=== PATIENT | male | born 1975 ===

== ENCOUNTER 2017-05-21 10:42 | Day surgery (SDC) | payer OTHER ==
[2017-05-21] MEDS ORDERED: Lidocaine 4% (Laryng-O-Jet) Kit MM ONE (11:48)
[2017-05-21 12:53] VITALS: BMI 25.4
[2017-05-21] MEDS ORDERED: Midazolam 2 MG/2 ML VIAL ONE (13:03)
[2017-05-21] MEDS ORDERED: Propofol 10 mg/ml Inj (20 ML) ONE ×2 (13:03→13:12)
--- NOTE | 2017-05-21 17:03 | CARD ---
APPROVED REPORT EXAM: Two-dimensional and M-mode echocardiogram with Doppler and color Doppler. Other Information Quality : GoodRhythm : NSR INDICATION CVA/TIA Mitral Valve E/A ratio0.0 TDI E/Lateral E'0.0E/Medial E'0.0 LEFT VENTRICLE The left ventricle is normal size. There is normal left ventricular wall thickness. The left ventricular function is normal. The left ventricular ejection fraction is within the normal range. There is normal LV segmental wall motion. RIGHT VENTRICLE The right ventricle is normal size. There is normal right ventricular wall thickness. The right ventricular systolic function is normal. ATRIA The left atrium size is normal. The right atrium size is normal. The interatrial septum is intact with no evidence for an atrial septal defect. AORTIC VALVE The aortic valve is normal in structure. No aortic regurgitation is present. There is no aortic valvular stenosis. MITRAL VALVE The mitral valve is normal in structure. There is no evidence of mitral valve prolapse. There is no mitral valve stenosis. There is no mitral valve regurgitation noted. TRICUSPID VALVE The tricuspid valve is normal in structure. There is no tricuspid valve regurgitation noted. GREAT VESSELS The aortic root is normal in size. <Conclusion> No evidence of a PFO or septal defects No intre-cardiac thrombus
== END 2017-05-21 16:00 | disposition short-term general hospital (02) ==
LOC: C.CATHLAB 10:42
PROVIDERS: ATTEND Specialist
DX: Z86.73 Personal history of transient ischemic attack (TIA), and cerebral infarction without residual deficits (principal); I10 Essential (primary) hypertension
CPT/HCPCS: 93312; J2001; J2250; J2704

== ENCOUNTER 2017-12-09 20:45 | Emergency (ER) | payer MEDICAID, OTHER ==
[2017-12-09 20:45] VITALS: BMI 25.4
[2017-12-09 20:59] VITALS: BP 112/73; PULSE 74; TEMP 97.4; O2SAT 98
--- NOTE | 2017-12-09 21:20 | C.PDOC ---
History Of Present Illness 42 year old male presents to the ER with a complaint of left eye pain and foreign body sensation for the past 2 days. 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 Denies use of glasses/contact lenses, purulent drainage, visual changes, or other injury. Time Seen by Provider: 12/09/17 21:04 Chief Complaint (Nursing): Eye Problem History Per: Patient History/Exam Limitations: no limitations Onset/Duration Of Symptoms: Days (2) Current Symptoms Are (Timing): Still Present Wears Contact Lens?: No Associated Symptoms: Pain, FB Sensation, Other (Tearing) Recent travel outside of the [place]: No Past Medical History Reviewed: Historical Data, Nursing Documentation, Vital Signs Vital Signs: Last Vital Signs Temp 97.4 F L 12/09/17 20:54 Pulse 74 12/09/17 20:54 Resp 16 12/09/17 20:54 BP 112/73 12/09/17 20:54 Pulse Ox 98 12/09/17 20:54 - Medical History PMH: Anxiety, HTN Surgical History: Appendectomy - [facility] Procedures ULTRASONOGRAPHY OF RIGHT AND LEFT HEART, TRANSESOPHAGEAL (05/19/17) Family History: States: Unknown Family Hx - Social History Hx Alcohol Use: Yes Hx Substance Use: No Review Of Systems Eyes: Positive for: Pain, Other (Foreign body sensation) Physical Exam - Physical Exam Appears: Non-toxic, No Acute Distress Skin: Normal Color, Warm, Dry Head: Atraumatic, Normacephalic Eye(s): bilateral: PERRL, EOMI, right: Normal Inspection, left: Other ((+) FB, (+) fluorescein uptake ) Nose: Normal Oral Mucosa: Moist Neck: Normal ROM, Supple Chest: Symmetrical Respiratory: No Accessory Muscle Use Extremity: Normal ROM Neurological/Psych: Oriented x3, Normal Speech, Normal Cognition ED Course And Treatment O2 Sat by Pulse Oximetry: 98 (Room air) Pulse Ox Interpretation: Normal Progress Note: Foreign body removed via cotton swab with relief of patient's pain. Pt is resting comfortably in the ER in no acute distress, vitals are stable, will discharge home with Rx and instructions to follow up with dehydration unit operator for further evaluation. Discussed strict follow up to ensure healing and resolution. Discussed return precautions. Disposition - Disposition Referrals: Paul Crawford [Staff Provider] - Disposition: HOME/ ROUTINE Disposition Time: 21:18 Condition: STABLE Additional Instructions: Vaya a dyer mdico o la clnica en 2-3 agustin sin falta, para mas evaluacin. [place] los medicamentos zina indicado. Volver a la rosalva de emergencia en cualquier momento si los sntomas persisten o empeoran. Prescriptions: Tobramycin 0.3% [Tobramycin 5 Ml] 1 drop OP Q4 #1 bottle Instructions: Corneal Abrasion (DC) Forms: [employer] [facility] (Mozambican) Print Language: HEBREW - Clinical Impression Clinical Impression: Corneal abrasion, Corneal foreign body - Scribe Statement The provider has reviewed the documentation as recorded by the Scribe Wes Bianchi All medical record entries made by the Scribe were at my direction and personally dictated by me. I have reviewed the chart and agree that the record accurately reflects my personal performance of the history, physical exam, medical decision making, and the department course for this patient. I have also personally directed, reviewed, and agree with the discharge instructions and disposition.
[2017-12-09 21:39] VITALS: RESP 20
== END 2017-12-09 21:38 | disposition home or self-care (01) ==
LOC: C.ER 20:45
DX: T15.02XA Foreign body in cornea, left eye, initial encounter (principal); X58.XXXA Exposure to other specified factors, initial encounter; Y92.89 Other specified places as the place of occurrence of the external cause; Y99.0 Civilian activity done for income or pay